=== PATIENT | female | born 1950 | race Caucasian/White ===

== ENCOUNTER → 2020-11-01 09:58 | Outpatient (BNVA) | payer MEDICARE, OTHER, SELFPAY | PROVIDERS: Visit Provider Nurse Practitioner Family | DX: Z20.822 Contact with and (suspected) exposure to COVID-19 (principal) | CPT/HCPCS: 87426 ==

== ENCOUNTER 2021-10-09 08:41 | Emergency (ER) | payer MEDICARE, OTHER, SELFPAY ==
--- NOTE | 2021-10-09 08:51 | ED_ITS ---
HPI - Dizziness General: Chief Complaint: Dizziness Stated Complaint: DIZZY Time Seen by Provider: 10/09/21 08:46 History of Present Illness: HPI Narrative: 71-year-old female presents with dizziness that started this morning. Patient reports that she got up was walking in her kitchen after she ate and just got real dizzy. She reports she has had constant ringing of her ears for about the last 2 weeks since she was diagnosed with COVID. Patient also had some chest tightness since she was diagnosed with COVID. Patient reports that when she was initially diagnosed she was given prescribed Paxlovid. After it initially got better then it came back and her symptoms have been worse. She denies any shortness of breath. She is still having some nausea some sore throat, generalized malaise. She is vaccinated and boosted. Patient denies any fever or chills. She complains of just pressure in her head since she has gotten COVID. Associated symptoms: Reports headache(s), malaise and tinnitus; Denies chest pain, chills, nausea, palpitations or vomiting Associated neuro symptoms: Deny numbness in extremities Review of Systems Const: Reports: body aches, fatigue and malaise; Denies: fever(s) or chills Eyes: Denies: change in vision or blurry vision ENMT: Reports: throat pain and tinnitus; Denies: ear or mastoid pain Card: Reports: lightheadedness; Denies: chest pain or palpitations Resp: Reports: chest congestion; Denies: dyspnea or wheezing GI: Denies: abdominal pain, nausea or vomiting : Denies: flank pain or difficulty voiding Musc: Denies: neck pain or muscle weakness Neuro: Reports: headache(s) and dizziness; Denies: numbness in extremities Psych: Denies: anxiety or depression All/Imm: Denies: urticaria or throat swelling Physical Exam Const: COMMON NORMALS: no acute distress, patient oriented x3, no limitations and alert HENMT: COMMON NORMALS: normocephalic, atraumatic, hearing grossly normal bilaterally, TM's normal bilaterally and moist oral mucous membranes HEAD & SCALP: normocephalic and atraumatic TYMPANIC MEMBRANE: TM's normal bilaterally Eye: COMMON NORMALS: Equal, round and reactive pupils present and EOMs intact bilaterally PUPIL: Yes Equal, round and reactive pupils present Neck/C-Spine: COMMON NORMALS: full ROM, supple and no JVD Resp: COMMON NORMALS: normal respiratory effort, No use of accessory muscles and clear to auscultation bilaterally AUSCULTATION: clear to auscultation bilaterally Cardio: COMMON NORMALS: no JVD; negative for regular rate and negative for regular rhythm RATE: abnormal rate RHYTHM: abnormal rhythm Neuro: COMMON NORMALS: patient oriented x3 SENSORIUM/ORIENTATION: Yes alert Psych: COMMON NORMALS: mental status grossly normal and cooperative Skin: COMMON NORMALS: no rashes or lesions noted GENERAL SKIN EXAM: no rashes or lesions noted Course Vital Signs: Vital signs: Vital Signs Pulse Rate 73 10/09/21 09:30 Respiratory Rate 17 10/09/21 09:30 Blood Pressure 154/82 10/09/21 09:30 Pulse Oximetry 100 10/09/21 09:30 MDM - Dizziness Medical Decision Making Patient is currently positive for COVID and likely cause of her symptoms. Patient with no acute findings on labs, CT exam or physical exam. Discussed with her that COVID symptoms are variable in how long it takes to resolve. She should follow-up closely with her primary care provider. Patient was stable and discharged home Lab Data : 10/09/21 09:15 10/09/21 09:15 Radiology Impressions Chest X-Ray 10/09/21 09:00 IMPRESSION: No acute cardiopulmonary abnormality identified. Head CT 10/09/21 09:00 IMPRESSION: 1. Minimal presumed small vessel ischemic disease of indeterminate age.. 2. No acute intracranial abnormality is identified. Laboratory Results WBC 10.0 10^3/uL (4.0-10.0) 10/09/21 09:15 RBC 4.39 10^6/uL (4.1-5.3) 10/09/21 09:15 Hgb 13.6 g/dL (11.5-15.3) 10/09/21 09:15 Hct 41.3 % (37.0-47.0) 10/09/21 09:15 MCV 94.1 fl (81-99) 10/09/21 09:15 MCH 31.0 pg (28.0-34.0) 10/09/21 09:15 MCHC 32.9 g/dL (30.0-36.0) 10/09/21 09:15 RDW 13.6 % (12.1-15.1) 10/09/21 09:15 Plt Count 237 10^3/cmm (130-400) 10/09/21 09:15 MPV 8.9 fL (7.4-10.4) 10/09/21 09:15 Neut % (Auto) 75.1 % 10/09/21 09:15 Lymph % (Auto) 15.7 % 10/09/21 09:15 Harding % (Auto) 5.7 % 10/09/21 09:15 Eos % (Auto) 1.8 % 10/09/21 09:15 Baso % (Auto) 0.2 % 10/09/21 09:15 Neut # (Auto) 7.49 10^3/uL (1.8-7.7) 10/09/21 09:15 Lymph # (Auto) 1.6 10^3/uL (0.8-4.8) 10/09/21 09:15 Harding # (Auto) 0.6 10^3/uL (0.2-0.9) 10/09/21 09:15 Eos # (Auto) 0.2 10^3/uL (0.0-0.8) 10/09/21 09:15 Baso # (Auto) 0.0 10^3/uL (0.0-0.1) 10/09/21 09:15 Nucleated RBC % (auto) 0 % 10/09/21 09:15 Nucleated RBCs # 0.0 /100WBC 10/09/21 09:15 Sodium 140 mmol/L (136-145) 10/09/21 09:15 Potassium 4.3 mmol/L (3.5-5.1) 10/09/21 09:15 Chloride 105 mmol/L (98-107) 10/09/21 09:15 Carbon Dioxide 28 mmol/L (22-29) 10/09/21 09:15 Anion Gap 11.3 (5-19) 10/09/21 09:15 BUN 19 mg/dL (8-23) 10/09/21 09:15 Creatinine 0.8 mg/dL (0.5-0.9) 10/09/21 09:15 GFR Calculation Not Reportable 10/09/21 09:15 Glucose 91 mg/dL (65-115) 10/09/21 09:15 Calculated Osmolality 292 mOsm/kg (285-295) 10/09/21 09:15 Calcium 8.9 mg/dL (8.5-10.5) 10/09/21 09:15 Magnesium 2.2 mg/dL (1.7-2.3) 10/09/21 09:15 Total Bilirubin 0.4 mg/dL (0.15-1.2) 10/09/21 09:15 AST 14 U/L (0-32) 10/09/21 09:15 ALT 28 U/L (0-33) 10/09/21 09:15 Alkaline Phosphatase 84 IU/L (35-105) 10/09/21 09:15 C-Reactive Protein 11.5 mg/L (0.0-4.9) H 10/09/21 09:15 Total Protein 6.1 g/dL (6.6-8.7) L 10/09/21 09:15 Albumin 3.7 g/dL (3.5-5.2) 10/09/21 09:15 Globulin 2.4 g/dL (1.3-4.6) 10/09/21 09:15 Urine Color Yellow (Yellow) 10/09/21 10:53 Urine Appearance Clear (CLEAR) 10/09/21 10:53 Urine pH 7 (5-7) 10/09/21 10:53 Ur Specific [employer]on 1.005 (1.005-1.030) 10/09/21 10:53 Urine Protein Neg (Negative) 10/09/21 10:53 Urine Glucose (UA) Norm (Normal) 10/09/21 10:53 Urine Ketones Negative (Negative) 10/09/21 10:53 Urine Blood Neg (Negative) 10/09/21 10:53 Urine Nitrate Negative (Negative) 10/09/21 10:53 Urine Bilirubin Neg (Negative) 10/09/21 10:53 Urine Urobilinogen Norm mg/dL (Negative) 10/09/21 10:53 Ur Leukocyte Esterase Negative (Negative) 10/09/21 10:53 Discharge Plan Discharge Condition: Stable Prescriptions: No Action Unable to Assess Referrals: [facility] [Other] Coding Level of Care Code ED Supervisor [employer] for Chg Fwd Exam Comprehensive
--- NOTE | 2021-10-09 09:00 | XRR_ITS ---
PROCEDURE INFORMATION: Exam: XR Chest Exam date and time: 10/09/2021 9:11 AM Age: 71 years old Clinical indication: Chest pressure/pain and chest tightness. TECHNIQUE: Imaging protocol: Radiologic exam of the chest. Views: 1 view. COMPARISON: No relevant prior studies available. FINDINGS: Lungs: Subsegmental atelectasis at the left base. Probable mild scarring in the right costophrenic angle. Pleural spaces: No pleural effusion. No pneumothorax. Heart/Mediastinum: The cardiac silhouette is unremarkable. No gross evidence of pneumomediastinum. Diaphragm: Mild elevation of the right hemidiaphragm. Bones/joints: No gross fracture. XR/XR chest 1V portable [id number] IMPRESSION: No acute cardiopulmonary abnormality identified.
--- NOTE | 2021-10-09 09:00 | CTR_ITS ---
PROCEDURE INFORMATION: Exam: CT Head Without Contrast Exam date and time: 10/09/2021 9:21 AM Age: 71 years old Clinical indication: Dizziness TECHNIQUE: Imaging protocol: Computed tomography of the head without contrast. Radiation optimization: All CT scans at this facility use at least one of these dose optimization techniques: automated exposure control; mA and/or kV adjustment per patient size (includes targeted exams where dose is matched to clinical indication); or iterative reconstruction. COMPARISON: No relevant prior studies available. RADIATION DOSE METRICS: Total DLP (mGy-cm): 1062.15 FINDINGS: Brain: No acute intracranial hemorrhage. No mass, mass effect or midline shift. There is minimal patchy subcortical and periventricular hypodensity, most commonly associated with small vessel ischemic disease of indeterminate age. The posterior fossa is grossly unremarkable; however, it is partially obscurred by beam hardening artifact. There is no evidence of acute large vessel infarct. Cerebral ventricles: The ventricles are normal in configuration. Paranasal sinuses: See Mastoid air cells finding. Mastoid air cells: Small osteoma in the left mastoid air cells. Mild mucosal thickening in the left maxillary sinus with retention cyst or polyp. No mastoid effusion. Orbital cavities: The visualized orbits are unremarkable. Bones/joints: No acute fracture is seen. Soft tissues: No significant scalp soft tissue swelling. CT/CT head wo con* [id number] IMPRESSION: 1. Minimal presumed small vessel ischemic disease of indeterminate age.. 2. No acute intracranial abnormality is identified.
[2021-10-09 09:23] LABS: Basophils % 0.2 %; Eosinophils # 0.2 10^3/uL (0.0-0.8); Eosinophils % 1.8 %; Hematocrit 41.3 % (37.0-47.0); Hemoglobin 13.6 g/dL (11.5-15.3); Lymphocytes # 1.6 10^3/uL (0.8-4.8); Lymphocytes % 15.7 %; Mean Corpuscular HGB Conc 32.9 g/dL (30.0-36.0); Mean Corpuscular Volume 94.1 fl (81-99); Mean Platelet Volume 8.9 fL (7.4-10.4); Monocytes # 0.6 10^3/uL (0.2-0.9); Monocytes % 5.7 %; Neutrophils # 7.49 10^3/uL (1.8-7.7); Neutrophils % 75.1 %; Nucleated Red Blood Cells % 0 %; Platelet Count 237 10^3/cmm (130-400); Red Blood Count 4.39 10^6/uL (4.1-5.3); Red Cell Distribution Width 13.6 % (12.1-15.1)
--- NOTE | 2021-10-09 09:23 | PC.NURSE ---
ATTEMPTED TO OBTAIN UA AND ADM MEDICATION PT IS NOT IN ROOM. FAMILY REPORTS PT WENT TO CAT SCAN.
[2021-10-09 09:30] VITALS: BP 154/82; PULSE 73; RESP 17; O2SAT 100; BMI 28.3
[2021-10-09 09:46] LABS: Alanine Aminotransferase 28 U/L (0-33); Albumin Level 3.7 g/dL (3.5-5.2); Alkaline Phosphatase 84 IU/L (35-105); Anion Gap 11.3 (5-19); Aspartate Amino Transferase 14 U/L (0-32); Blood Urea Nitrogen 19 mg/dL (8-23); C Reactive Protein 11.5 mg/L (0.0-4.9); Calcium 8.9 mg/dL (8.5-10.5); Carbon Dioxide 28 mmol/L (22-29); Chloride 105 mmol/L (98-107); Creatinine Clr Calc Pharmacy 65.2702; Globulin 2.4 g/dL (1.3-4.6); Glucose 91 mg/dL (65-115); Magnesium 2.2 mg/dL (1.7-2.3); Osmolality Calculated 292 mOsm/kg (285-295); Potassium 4.3 mmol/L (3.5-5.1); Sodium 140 mmol/L (136-145); Total Bilirubin 0.4 mg/dL (0.15-1.2); Total Protein 6.1 g/dL (6.6-8.7)
[2021-10-09] MEDS: meclizine 25 mg tablet 50 MG PO (09:46)
[2021-10-09] MEDS: sodium chloride 0.9% 1,000 ML 999 ML IV (09:46)
[2021-10-09 10:00] VITALS: BP 130/63; PULSE 61; RESP 11; O2SAT 99
[2021-10-09 10:59] LABS: Add Urine Microscopic? NO; Charge for UA Resulting for Rev
[2021-10-09 11:22] LABS: Bilirubin Urine Neg (Negative); Blood Urine Neg (Negative); Glucose Urine UA Norm (Normal); Ketones Urine Negative (Negative); Leukocyte Esterase Urine Negative (Negative); Nitrate Urine Negative (Negative); Protein Urine Neg (Negative); Specific Gravity, Urine 1.005 (1.005-1.030); Urine Appearance Clear (CLEAR); Urine Color Yellow (Yellow); Urobilinogen Urine Norm (Negative); pH Urine 7 (5-7)
[2021-10-09 11:30] VITALS: BP 113/59; PULSE 65; RESP 15; O2SAT 97
[2021-10-09 12:30] VITALS: BP 104/66; PULSE 62; RESP 14; O2SAT 99
== END 2021-10-09 13:06 | disposition home or self-care (01) ==
PROVIDERS: Emergency Provider Student in an Organized Health Care Education/Training Program
DX: U07.1 COVID-19 (principal); R42 Dizziness and giddiness
CPT/HCPCS: 70450; 71045; 80053; 81003; 83735; 85025; 86140; 99284; J7030; J8597

== ENCOUNTER → 2025-01-22 14:47 | Outpatient (BNVA) | payer MEDICARE, OTHER, SELFPAY | PROVIDERS: Visit Provider Podiatrist Foot & Ankle Surgery | DX: M21.622 Bunionette of left foot (principal); M21.621 Bunionette of right foot; L60.3 Nail dystrophy | CPT/HCPCS: 99204 ==

== ENCOUNTER → 2025-02-19 10:24 | Outpatient (BNVA) | payer MEDICARE, OTHER, SELFPAY | PROVIDERS: Visit Provider Podiatrist Foot & Ankle Surgery | DX: L60.0 Ingrowing nail (principal); M21.622 Bunionette of left foot; M21.621 Bunionette of right foot; L60.3 Nail dystrophy | CPT/HCPCS: 11750; J9999 ==